=== PATIENT | male | born 1975 | race Caucasian/White ===

== ENCOUNTER 2019-06-08 18:48 | Emergency (ER) | payer SELFPAY ==
[2019-06-08] MEDS ORDERED: ACETAMINOPHEN 325 MG TABLET PO ONE (19:10)
--- NOTE | 2019-06-08 19:13 | ER Document Report ---
HPI - HPI Patient complains to provider of: Fever, cough Time Seen by Provider: 06/08/19 19:06 Onset: Other - 3 days Onset/Duration: Persistent Pain Level: Denies Context: Patient presents with fever cough and congestion for the past 3 days. Patient states he did vomit one time but attributes this to bad tasting orange juice. Patient presents today at the insistence of his spouse. Patient denies any pain symptoms. Associated Symptoms: Nonproductive cough, Fever, Vomiting. denies: Earache, Nausea Exacerbated by: Denies Relieved by: Denies Similar symptoms previously: No Recently seen / treated by doctor: No - ROS ROS below otherwise negative: Yes Systems Reviewed and Negative: Yes All other systems reviewed and negative - CONSTITUTIONAL Constitutional: REPORTS: Fever, Chills - EENT EENT: REPORTS: Nasal Drainage-Clear, Congestion. DENIES: Sore Throat - CARDIOVASCULAR Cardiovascular: DENIES: Chest pain - RESPIRATORY Respiratory: REPORTS: Coughing. DENIES: Trouble Breathing - GASTROINTESTINAL Gastrointestinal: REPORTS: Patient vomiting. DENIES: Abdominal Pain, Diarrhea - DERM Skin Color: Normal Skin Problems: None Past Medical History - General Information source: Patient - Social History Smoking Status: Current Some Day Smoker Frequency of alcohol use: None Drug Abuse: None Occupation: warehouse delivery driver Lives with: Family Family History: Reviewed & Not Pertinent Patient has suicidal ideation: No Patient has homicidal ideation: No - Medical History Medical History: Negative Surgical Hx: Negative Vertical Provider Document - CONSTITUTIONAL Agree With Documented VS: Yes Exam Limitations: No Limitations General Appearance: WD/WN, No Apparent Distress - INFECTION CONTROL TRAVEL OUTSIDE OF THE [place] IN LAST 30 DAYS: No - HEENT HEENT: Atraumatic, Normocephalic. negative: Pharyngeal Exudate, Pharyngeal Tenderness, Pharyngeal Erythema, Tympanic Membrane Red, Tympanic Membrane Bulging Notes: Clear rhinorrhea - NECK Neck: Normal Inspection, Supple. negative: Lymphadenopathy-Left, Lymphadenopathy-Right - RESPIRATORY Respiratory: No Respiratory Distress, Chest Non-Tender, Other - Dry cough - CARDIOVASCULAR Cardiovascular: Regular Rhythm, No Murmur, Tachycardia - BACK Back: Normal Inspection. negative: CVA Tenderness-Right, CVA Tenderness-Left - MUSCULOSKELETAL/EXTREMETIES Musculoskeletal/Extremeties: MAEW, FROM - NEURO Level of Consciousness: Awake, Alert, Appropriate Motor/Sensory: No Motor Deficit - DERM Integumentary: Warm, Dry, No Rash Course - Re-evaluation Re-evalutation: 06/08/19 20:34 Patient's respirations even unlabored, patient nontoxic in appearance. Influenza test negative, chest x-ray reviewed, no concern for pneumonia or pneumothorax. Suspect likely viral upper respiratory infection at this time. Good return precautions discussed with patient. Patient verbalized understanding and agrees with discharge plan of care. - Vital Signs Vital signs: Temp Pulse Resp BP Pulse Ox 101.2 F H 123 H 16 123/77 96 06/08/19 18:53 06/08/19 18:53 06/08/19 18:53 06/08/19 18:53 06/08/19 18:53 - Laboratory Laboratory results interpreted by me: 06/08/19 20:33 Labs- Entire Visit 06/08/19 19:15 Influenza A (Rapid) NEGATIVE Influenza B (Rapid) NEGATIVE - Diagnostic Test Radiology reviewed: Reports reviewed Discharge - Discharge Clinical Impression: Fever Qualifiers: Fever type: unspecified Qualified Code(s): R50.9 - Fever, unspecified Upper respiratory infection Qualifiers: URI type: unspecified URI Qualified Code(s): J06.9 - Acute upper respiratory infection, unspecified Condition: Stable Disposition: HOME, SELF-CARE Instructions: Acetaminophen, Fever ([facility]), Use of [id number] Ibuprofen ([facility]), Upper Respiratory Illness ([facility]) Additional Instructions: Return immediately for any new or worsening symptoms Followup with your primary care provider, call tomorrow to make a followup appointment You may take Sudafed [id number] to help with congestion symptoms. Prescriptions: Benzonatate [Tessalon Perles 100 mg Capsule] 100 mg PO ASDIR PRN #20 capsule PRN Reason: Forms: Return to Work Referrals: [facility] [Provider Group] - Follow up as needed [facility] [Provider Group] - Follow up as needed
--- NOTE | 2019-06-08 19:42 | RADIOLOGY REPORT (SQ) ---
EXAM DESCRIPTION: CHEST 2 VIEWS COMPLETED DATE/TIME: 06/08/2019 7:17 pm REASON FOR STUDY: fever, cough COMPARISON: None. EXAM PARAMETERS: NUMBER OF VIEWS: two views TECHNIQUE: Digital Frontal and Lateral radiographic views of the chest acquired. RADIATION DOSE: NA LIMITATIONS: none FINDINGS: LUNGS AND PLEURA: No opacities, masses or pneumothorax. No pleural effusion. MEDIASTINUM AND HILAR STRUCTURES: No masses or contour abnormalities. HEART AND VASCULAR STRUCTURES: Heart normal size. No evidence for failure. BONES: No acute findings. HARDWARE: None in the chest. OTHER: No other significant finding. IMPRESSION: NO ACUTE RADIOGRAPHIC FINDING IN THE CHEST. TECHNICAL DOCUMENTATION: JOB ID: [id number] 2010 [employer]- All Rights Reserved Reading location - IP/workstation name: [email or web address]
[2019-06-08 20:31] LABS: A TYPE INFLUENZA AG NEGATIVE (NEGATIVE); B INFLUENZA AG NEGATIVE (NEGATIVE)
[2019-06-08 20:38] VITALS: BP 100/72
== END 2019-06-08 20:46 | disposition home or self-care (01) ==
LOC: ER 18:48
DX: J06.9 Acute upper respiratory infection, unspecified (principal); R50.9 Fever, unspecified; R68.89 Other general symptoms and signs; R11.10 Vomiting, unspecified; F17.200 Nicotine dependence, unspecified, uncomplicated
CPT/HCPCS: 71046; 87804; 99283